=== PATIENT | male | born 1950 | race Two or more races ===

== ENCOUNTER 2019-03-01 18:06 | Inpatient (IN) | payer MEDICARE, MEDICAID | END 2019-03-05 12:43 | LOC: TELE 03-02 00:38 → TELE-WESTW 03-02 00:59 → ER 18:06 | DX: J18.9 Pneumonia, unspecified organism (principal); J44.0 Chronic obstructive pulmonary disease with (acute) lower respiratory infection; I10 Essential (primary) hypertension ==